=== PATIENT | male | born 1985 | race Caucasian/White ===

== ENCOUNTER 2021-06-04 09:13 | Inpatient (IN) | payer OTHER ==
[~2021-06-04] VITALS: Ht 177.8 cm; Wt 98.0 kg
[2021-06-04 10:42] LABS: BASOPHILS % (AUTO) 0.5 % (0.0-2.0); EOSINOPHILS % (AUTO) 4.5 % (1.0-6.0); HEMOGLOBIN 15.1 g/dL (13.5-17.5); LYMPHOCYTES # (AUTO) 1.1 K/uL (1.0-4.8); MEAN CORPUSCULAR HEMOGLOBIN 26.3 pg (26.0-34.0); MEAN CORPUSCULAR HGB CONC 32.1 G/dL (31.0-37.0); MEAN CORPUSCULAR VOLUME 82 fL (80-100); MONOCYTES # (AUTO) 0.5 K/uL (0.1-1.0); MONOCYTES % (AUTO) 7.7 % (2.0-9.0); NEUTROPHILS # (AUTO) 5.2 K/uL (1.8-7.7); NEUTROPHILS % (AUTO) 72.3 % (40.0-70.0); PLATELET COUNT (AUTO) 268 K/uL (150-450); RED BLOOD CELL COUNT(AUTO) 5.73 MIL/uL (4.50-5.90); RED CELL DISTRIBUTION WIDTH 16.4 % (11.5-14.5)
[2021-06-04 10:50] LABS: ANION GAP 6 mmol/L (8-16); CALCIUM, TOTAL 8.7 mg/dL (8.8-10.5); CARBON DIOXIDE 28 mmol/L (22-29); CHLORIDE 107 mmol/L (98-107); CREATININE 0.93 mg/dL (0.60-1.30); GLOMERULAR FILTR. RATE CALC > 60 mL/min (>60); GLUCOSE,RANDOM 97 mg/dL (70-110); POTASSIUM 3.8 mmol/L (3.5-5.1); SODIUM SERUM 141 mmol/L (136-145); UREA NITROGEN, BLOOD 14 mg/dL (7-18)
[2021-06-04 10:56] LABS: ALANINE AMINOTRANSFERASE 39 U/L (12-78); ALBUMIN 3.4 g/dL (3.4-5.0); ALKALINE PHOSPHATASE 87 U/L (46-116); ASPARTATE AMINOTRANSFERASE 19 U/L (15-37); BILIRUBIN,TOTAL 0.4 mg/dL (0.1-1.0); TOTAL PROTEIN, SERUM 7.4 g/dL (6.4-8.2)
[2021-06-04] MEDS ORDERED: 0.9% SODIUM CHLORIDE 10 ML SYRINGE IVP PRN (11:15)
[2021-06-04] MEDS ORDERED: ALBUTEROL SULFATE/IPRATROPIUM 100-20 MCG/SPRAY 4 GM INHALER IH PRN (11:15)
[2021-06-04] MEDS ORDERED: ACETAMINOPHEN 325 MG TABLET PO PRN (11:15)
[2021-06-04] MEDS ORDERED: ONDANSETRON HCL 4 MG/2 ML VIAL IVP PRN (11:15)
[2021-06-04] MEDS ORDERED: BENZONATATE 100 MG CAPSULE PO PRN (11:15)
[2021-06-04] MEDS ORDERED: BISACODYL 10 MG RECTAL RECTAL SUPPOSITORY PR PRN (11:15)
[2021-06-04] MEDS ORDERED: DOCUSATE SODIUM 100 MG CAPSULE PO PRN (11:15)
[2021-06-04 11:49] LABS: COVID AG,FIA SOURCE NASAL SWAB
[2021-06-04 12:35] VITALS: BP 128/83
[2021-06-04] MEDS: HEPARIN SODIUM,PORCINE 5,000 UNITS/ML VIAL SQ SCH ×2 (16:32→23:19)
[2021-06-04 20:25] VITALS: BP 130/82
[2021-06-05 04:40] VITALS: BP 122/84
[2021-06-05 07:59] VITALS: BP 131/81
[2021-06-05] MEDS: HEPARIN SODIUM,PORCINE 5,000 UNITS/ML VIAL SQ SCH ×2 (08:00→15:59)
[2021-06-05] MEDS: FAMOTIDINE 20 MG TABLET PO SCH (08:13)
[2021-06-05 18:35] VITALS: BP 120/80
[2021-06-05 19:37] VITALS: BP 147/75
[2021-06-06 05:49] VITALS: BP 128/75
[2021-06-06 07:54] VITALS: BP 112/65
[2021-06-06] MEDS: HEPARIN SODIUM,PORCINE 5,000 UNITS/ML VIAL SQ SCH ×3 (08:00→13:33)
[2021-06-06] MEDS: FAMOTIDINE 20 MG TABLET PO SCH (08:20)
[2021-06-06] MEDS ORDERED: FAMO20 PO (12:08)
== END 2021-06-06 14:30 | DRG 203 ==
LOC: EMS 09:21 → 6S 11:30
PROVIDERS: ADMIT Internal Medicine; ATTEND Internal Medicine
DX: J40 Bronchitis, not specified as acute or chronic (principal); Z20.822 Contact with and (suspected) exposure to COVID-19; Z87.891 Personal history of nicotine dependence
CPT/HCPCS: 71045; 80053; 85025; 99285; J1644; 36415-L1; 36415-TC; U0003

== ENCOUNTER 2021-06-08 20:23 | Inpatient (IN) | payer OTHER ==
[~2021-06-08] VITALS: Ht 180.3 cm; Wt 112.3 kg
[~2021-06-08 20:23] MED LIST: FAMO20 PO
[2021-06-08 22:52] LABS: BASOPHILS % (AUTO) 0.5 % (0.0-2.0); EOSINOPHILS % (AUTO) 3.7 % (1.0-6.0); HEMATOCRIT 45.7 % (41-53); HEMOGLOBIN 14.6 g/dL (13.5-17.5); LYMPHOCYTES # (AUTO) 1.9 K/uL (1.0-4.8); LYMPHOCYTES % (AUTO) 27.1 % (22.0-44.0); MEAN CORPUSCULAR HEMOGLOBIN 26.5 pg (26.0-34.0); MEAN CORPUSCULAR VOLUME 83 fL (80-100); MONOCYTES # (AUTO) 0.6 K/uL (0.1-1.0); MONOCYTES % (AUTO) 9.3 % (2.0-9.0); NEUTROPHILS # (AUTO) 4.1 K/uL (1.8-7.7); NEUTROPHILS % (AUTO) 59.4 % (40.0-70.0); PLATELET COUNT (AUTO) 256 K/uL (150-450); RED BLOOD CELL COUNT(AUTO) 5.53 MIL/uL (4.50-5.90); RED CELL DISTRIBUTION WIDTH 16.3 % (11.5-14.5)
[2021-06-08 23:05] LABS: ANION GAP 6 mmol/L (8-16); CALCIUM, TOTAL 8.7 mg/dL (8.8-10.5); CARBON DIOXIDE 29 mmol/L (22-29); CHLORIDE 104 mmol/L (98-107); GLOMERULAR FILTR. RATE CALC > 60 mL/min (>60); GLUCOSE,RANDOM 90 mg/dL (70-110); POTASSIUM 4.4 mmol/L (3.5-5.1); SODIUM SERUM 139 mmol/L (136-145); UREA NITROGEN, BLOOD 14 mg/dL (7-18)
[2021-06-08 23:07] LABS: ALANINE AMINOTRANSFERASE 63 U/L (12-78); ALBUMIN 3.5 g/dL (3.4-5.0); ALKALINE PHOSPHATASE 90 U/L (46-116); ASPARTATE AMINOTRANSFERASE 24 U/L (15-37); BILIRUBIN,TOTAL 0.2 mg/dL (0.1-1.0); TOTAL PROTEIN, SERUM 7.2 g/dL (6.4-8.2)
[2021-06-09] MEDS ORDERED: DOCUSATE SODIUM 100 MG CAPSULE PO PRN (00:15)
[2021-06-09] MEDS ORDERED: CloNIDine HCL 0.1 MG TABLET PO PRN (00:15)
[2021-06-09] MEDS ORDERED: NICOTINE 14 MG/24 HOUR PATCH TD PRN (00:15)
[2021-06-09] MEDS ORDERED: GuaiFENesin/D-METHORPHAN [SUGAR-FREE] 200-20MG/10 ML SYRUP UDCUP PO PRN (00:15)
[2021-06-09] MEDS ORDERED: ONDANSETRON HCL 4 MG TABLET PO PRN (00:15)
[2021-06-09] MEDS ORDERED: MAGNESIUM HYDROXIDE SUSPENSION 30 ML UDCUP PO PRN (00:15)
[2021-06-09] MEDS ORDERED: MAG HYDROX/AL HYDROX/SIMETH ES 30 ML SUSPENSION UDCUP PO PRN (00:15)
[2021-06-09] MEDS ORDERED: PETROLATUM,WHITE 28 GM JELLY TP PRN (00:15)
[2021-06-09] MEDS ORDERED: ALBUTEROL SULFATE HFA 90 MCG/PUFF 8 GM INHALER IH PRN (00:15)
[2021-06-09] MEDS ORDERED: LOPERAMIDE HCL 2 MG CAPSULE PO PRN (00:15)
[2021-06-09] MEDS ORDERED: IBUPROFEN 400 MG TABLET PO PRN (00:15)
[2021-06-09] MEDS ORDERED: ACETAMINOPHEN 325 MG TABLET PO PRN (00:15)
[2021-06-09 00:28] LABS: COVID AG,FIA SOURCE NASOPHARYNGEAL
[2021-06-09 02:40] VITALS: BP 142/75
[2021-06-09 08:11] VITALS: BP 116/75
[2021-06-09 16:07] VITALS: BP 119/71
[2021-06-09] MEDS: SERTRALINE HCL 50 MG TABLET PO SCH (16:23)
[2021-06-09 20:03] VITALS: BP 133/80
[2021-06-10 05:14] VITALS: BP 121/71
[2021-06-10 07:43] VITALS: BP 122/64
[2021-06-10] MEDS: SERTRALINE HCL 50 MG TABLET PO SCH (08:33)
[2021-06-10 20:47] VITALS: BP 116/60
[2021-06-11 04:00] VITALS: BP 108/72
[2021-06-11] MEDS: SERTRALINE HCL 50 MG TABLET PO SCH (08:32)
[2021-06-11 08:41] VITALS: BP 117/60
[2021-06-11 19:23] VITALS: BP 142/66
[2021-06-12 04:10] VITALS: BP 114/71
[2021-06-12 07:23] VITALS: BP 115/70
[2021-06-12] MEDS: SERTRALINE HCL 50 MG TABLET PO SCH ×2 (07:55→20:19)
[2021-06-12 19:33] VITALS: BP 122/65
[2021-06-13 04:50] VITALS: BP 122/74
[2021-06-13 07:25] VITALS: BP 112/68
[2021-06-13] MEDS: SERTRALINE HCL 50 MG TABLET PO SCH ×2 (08:12→20:05)
[2021-06-13 15:54] VITALS: BP 135/75
[2021-06-13 19:55] VITALS: BP 127/71
[2021-06-14 05:00] VITALS: BP 114/67
[2021-06-14 07:54] VITALS: BP 108/59
[2021-06-14] MEDS: SERTRALINE HCL 50 MG TABLET PO SCH ×2 (08:23→19:24)
[2021-06-14 19:27] VITALS: BP 133/71
[2021-06-15 04:52] VITALS: BP 106/59
[2021-06-15 08:05] VITALS: BP 114/59
[2021-06-15] MEDS: SERTRALINE HCL 50 MG TABLET PO SCH (08:15)
[2021-06-15] MEDS ORDERED: SERT-158 PO (10:46)
[2021-06-15] MEDS ORDERED: ACET-2247 PO (10:47)
[2021-06-15] MEDS ORDERED: CLON0.1T2 PO (10:48)
[2021-06-15] MEDS ORDERED: ALBU8HFA IH (10:48)
[2021-06-15] MEDS ORDERED: DOCU-270 PO (10:49)
[2021-06-15] MEDS ORDERED: GUAIF10 PO (10:49)
[2021-06-15] MEDS ORDERED: IBUP-1506 PO (10:50)
[2021-06-15] MEDS ORDERED: LOPE2 PO (10:51)
[2021-06-15] MEDS ORDERED: [UNRECOGNIZED DRUG - CODE] PO (10:52)
[2021-06-15] MEDS ORDERED: NICO-703 TD (10:52)
[2021-06-15] MEDS ORDERED: ONDA-104 PO (10:53)
== END 2021-06-15 16:17 | DRG 885 ==
LOC: EMS 20:28 → UNDOADMIN 06-09 01:32 → 6S 06-09 01:32
PROVIDERS: ADMIT Internal Medicine; ATTEND Internal Medicine
DX: F25.1 Schizoaffective disorder, depressive type (principal); J96.00 Acute respiratory failure, unspecified whether with hypoxia or hypercapnia; K85.90 Acute pancreatitis without necrosis or infection, unspecified; R45.851 Suicidal ideations; K21.9 Gastro-esophageal reflux disease without esophagitis; I10 Essential (primary) hypertension; E66.3 Overweight; E66.9 Obesity, unspecified; F17.200 Nicotine dependence, unspecified, uncomplicated; F32.9 Major depressive disorder, single episode, unspecified; F41.9 Anxiety disorder, unspecified; Z20.822 Contact with and (suspected) exposure to COVID-19; Z68.34 Body mass index [BMI] 34.0-34.9, adult; Z91.5 Personal history of self-harm
CPT/HCPCS: 80053; 85025; 99285; G0480

== ENCOUNTER 2021-08-02 12:41 | Inpatient (IN) | payer OTHER ==
[~2021-08-02] VITALS: Ht 177.8 cm; Wt 104.5 kg
[~2021-08-02 12:41] MED LIST changes: -FAMO20 PO; +SERT-158 PO
[2021-08-02] MEDS ORDERED: LORazepam 2 MG TABLET PO ONE (13:00)
[2021-08-02] MEDS ORDERED: HALOPERIDOL 5 MG TABLET PO ONE (13:00)
[2021-08-02 13:08] LABS: BASOPHILS % (AUTO) 0.4 % (0.0-2.0); EOSINOPHILS % (AUTO) 2.1 % (1.0-6.0); HEMATOCRIT 44.4 % (41-53); HEMOGLOBIN 14.7 g/dL (13.5-17.5); LYMPHOCYTES # (AUTO) 1.8 K/uL (1.0-4.8); LYMPHOCYTES % (AUTO) 22.9 % (22.0-44.0); MEAN CORPUSCULAR VOLUME 82 fL (80-100); MONOCYTES # (AUTO) 0.6 K/uL (0.1-1.0); MONOCYTES % (AUTO) 7.5 % (2.0-9.0); NEUTROPHILS # (AUTO) 5.2 K/uL (1.8-7.7); NEUTROPHILS % (AUTO) 67.1 % (40.0-70.0); PLATELET COUNT (AUTO) 270 K/uL (150-450); RED BLOOD CELL COUNT(AUTO) 5.43 MIL/uL (4.50-5.90); RED CELL DISTRIBUTION WIDTH 15.6 % (11.5-14.5)
[2021-08-02 13:22] LABS: COVID AG,FIA SOURCE NASOPHARYNGEAL
[2021-08-02 13:27] LABS: ANION GAP 11 mmol/L (8-16); CARBON DIOXIDE 25 mmol/L (22-29); CHLORIDE 107 mmol/L (98-107); CREATININE 0.95 mg/dL (0.60-1.30); GLOMERULAR FILTR. RATE CALC > 60 mL/min (>60); GLUCOSE,RANDOM 94 mg/dL (70-110); POTASSIUM 3.8 mmol/L (3.5-5.1); SODIUM SERUM 143 mmol/L (136-145); UREA NITROGEN, BLOOD 8 mg/dL (7-18)
[2021-08-02] MEDS ORDERED: HALOPERIDOL LACTATE 5 MG/ML VIAL IM ONE (13:30)
[2021-08-02] MEDS ORDERED: LORazepam 2 MG/ML VIAL IM ONE (13:30)
[2021-08-02 13:34] LABS: ALANINE AMINOTRANSFERASE 43 U/L (12-78); ALKALINE PHOSPHATASE 93 U/L (46-116); ASPARTATE AMINOTRANSFERASE 19 U/L (15-37); BILIRUBIN,TOTAL 0.2 mg/dL (0.1-1.0); TOTAL PROTEIN, SERUM 7.7 g/dL (6.4-8.2)
[2021-08-02 13:40] LABS: CALCIUM, TOTAL 8.8 mg/dL (8.8-10.5)
[2021-08-02] MEDS ORDERED: ONDANSETRON HCL 4 MG/2 ML VIAL IVP PRN (14:45)
[2021-08-02] MEDS ORDERED: ACETAMINOPHEN 325 MG TABLET PO PRN ×2 (14:45→15:00)
[2021-08-02] MEDS ORDERED: MAGNESIUM HYDROXIDE SUSPENSION 30 ML UDCUP PO PRN (15:00)
[2021-08-02] MEDS ORDERED: ALBUTEROL SULFATE 2.5 MG/0.5 ML NEB SOLUTION NEB PRN (15:00)
[2021-08-02] MEDS ORDERED: BISACODYL 10 MG RECTAL RECTAL SUPPOSITORY PR PRN (15:00)
[2021-08-02] MEDS ORDERED: IPRATROPIUM BROMIDE 0.5 MG/2.5 ML NEB SOLUTION NEB PRN (15:00)
[2021-08-02] MEDS ORDERED: ZOLPIDEM TARTRATE 5 MG TABLET PO PRN (15:00)
[2021-08-02] MEDS: HEPARIN SODIUM,PORCINE 5,000 UNITS/ML VIAL SQ SCH (16:00)
[2021-08-02 16:02] VITALS: BP 117/79
[2021-08-02 20:19] VITALS: BP 125/79
[2021-08-03 04:49] VITALS: BP 132/75
[2021-08-03] MEDS: HEPARIN SODIUM,PORCINE 5,000 UNITS/ML VIAL SQ SCH ×4 (08:00→23:54)
[2021-08-03 08:02] VITALS: BP 152/101
[2021-08-03] MEDS: FLUoxetine HCL 20 MG CAPSULE PO SCH (14:45)
[2021-08-03] MEDS: OLANZapine 5 MG TABLET PO SCH ×2 (14:45→20:21)
[2021-08-03 16:07] VITALS: BP 125/72
[2021-08-03] MEDS ORDERED: AmLODIPine BESYLATE 2.5 MG TABLET PO ONE (16:15)
[2021-08-04 03:30] VITALS: BP 142/98
[2021-08-04] MEDS: HEPARIN SODIUM,PORCINE 5,000 UNITS/ML VIAL SQ SCH ×2 (08:00→16:00)
[2021-08-04 08:03] VITALS: BP 127/80
[2021-08-04] MEDS: OLANZapine 5 MG TABLET PO SCH ×2 (08:47→20:43)
[2021-08-04] MEDS: FLUoxetine HCL 20 MG CAPSULE PO SCH (08:47)
[2021-08-04] MEDS ORDERED: AmLODIPine BESYLATE 2.5 MG TABLET PO SCH (09:00)
[2021-08-04 19:51] VITALS: BP 109/59
[2021-08-05 04:43] VITALS: BP 131/86
[2021-08-05] MEDS: HEPARIN SODIUM,PORCINE 5,000 UNITS/ML VIAL SQ SCH ×3 (08:00→15:06)
[2021-08-05] MEDS: FLUoxetine HCL 20 MG CAPSULE PO SCH (08:09)
[2021-08-05] MEDS: OLANZapine 5 MG TABLET PO SCH ×2 (08:09→20:26)
[2021-08-05 08:14] VITALS: BP 136/79
[2021-08-06] MEDS: FLUoxetine HCL 20 MG CAPSULE PO SCH (07:49)
[2021-08-06] MEDS: HEPARIN SODIUM,PORCINE 5,000 UNITS/ML VIAL SQ SCH ×2 (07:49)
[2021-08-06] MEDS: OLANZapine 5 MG TABLET PO SCH (07:49)
== END 2021-08-06 13:00 | DRG 885 ==
LOC: EMS 12:44 → 6S 14:51
PROVIDERS: ADMIT Hospitalist; ATTEND Hospitalist
DX: F25.1 Schizoaffective disorder, depressive type (principal); I10 Essential (primary) hypertension; Z20.822 Contact with and (suspected) exposure to COVID-19; F17.210 Nicotine dependence, cigarettes, uncomplicated
CPT/HCPCS: 80053; 85025; 99285; G0480; J1630; J1644; J2060

== ENCOUNTER 2021-09-18 01:59 | Emergency (ER) | payer OTHER ==
[~2021-09-18] VITALS: Ht 177.8 cm; Wt 97.7 kg
[2021-09-18] MEDS ORDERED: BACITRACIN 0.9 GM PACKET OINTMENT TP ONE (02:15)
[2021-09-18 02:44] VITALS: BP 159/87
== END 2021-09-18 03:09 | disposition home or self-care (01) ==
LOC: EMS 02:01
DX: S00.81XA Abrasion of other part of head, initial encounter (principal); I10 Essential (primary) hypertension; F20.9 Schizophrenia, unspecified; F17.210 Nicotine dependence, cigarettes, uncomplicated; W22.8XXA Striking against or struck by other objects, initial encounter; Y93.89 Activity, other specified; Y92.89 Other specified places as the place of occurrence of the external cause; Y99.8 Other external cause status
CPT/HCPCS: 99283

== ENCOUNTER 2022-01-01 22:53 | Inpatient (IN) | payer OTHER ==
[~2022-01-01] VITALS: Ht 177.8 cm; Wt 102.3 kg
[2022-01-01 23:45] LABS: COVID AG,FIA SOURCE NASAL SWAB
[2022-01-01 23:47] LABS: BASOPHILS % (AUTO) 0.6 % (0.0-2.0); EOSINOPHILS % (AUTO) 3.4 % (1.0-6.0); HEMATOCRIT 44.1 % (41-53); HEMOGLOBIN 14.6 g/dL (13.5-17.5); LYMPHOCYTES # (AUTO) 1.5 K/uL (1.0-4.8); MEAN CORPUSCULAR HEMOGLOBIN 26.6 pg (26.0-34.0); MEAN CORPUSCULAR HGB CONC 33.2 G/dL (31.0-37.0); MEAN CORPUSCULAR VOLUME 80 fL (80-100); MONOCYTES # (AUTO) 0.9 K/uL (0.1-1.0); MONOCYTES % (AUTO) 13.4 % (2.0-9.0); NEUTROPHILS # (AUTO) 4.2 K/uL (1.8-7.7); NEUTROPHILS % (AUTO) 60.6 % (40.0-70.0); PLATELET COUNT (AUTO) 287 K/uL (150-450); RED CELL DISTRIBUTION WIDTH 14.6 % (11.5-14.5)
[2022-01-01 23:56] LABS: ANION GAP 6 mmol/L (8-16); CARBON DIOXIDE 30 mmol/L (22-29); CHLORIDE 105 mmol/L (98-107); CREATININE 1.11 mg/dL (0.60-1.30); GLOMERULAR FILTR. RATE CALC > 60 mL/min (>60); GLUCOSE,RANDOM 94 mg/dL (70-110); POTASSIUM 3.8 mmol/L (3.5-5.1); SODIUM SERUM 141 mmol/L (136-145); UREA NITROGEN, BLOOD 15 mg/dL (7-18)
[2022-01-02 00:01] LABS: ALANINE AMINOTRANSFERASE 31 U/L (12-78); ALBUMIN 3.9 g/dL (3.4-5.0); ALKALINE PHOSPHATASE 92 U/L (46-116); ASPARTATE AMINOTRANSFERASE 25 U/L (15-37); BILIRUBIN,TOTAL 0.3 mg/dL (0.1-1.0); TOTAL PROTEIN, SERUM 7.8 g/dL (6.4-8.2)
[2022-01-02] MEDS ORDERED: ACETAMINOPHEN 325 MG TABLET PO PRN (02:45)
[2022-01-02] MEDS ORDERED: ONDANSETRON HCL 4 MG/2 ML VIAL IVP PRN (02:45)
[2022-01-02 03:01] LABS: THYROID STIMULATING HORMONE 2.72 uIU/mL (0.36-3.74)
[2022-01-02 03:16] VITALS: BP 143/79
[2022-01-02] MEDS ORDERED: INFLUENZA VIRUS VACCINE QVS 2021-22 (6MO+)/PF 60 MCG/0.5 ML SYRINGE IM. ONE (05:00)
[2022-01-02 07:32] VITALS: BP 135/78
[2022-01-02] MEDS: HEPARIN SODIUM,PORCINE 5,000 UNITS/ML VIAL SQ SCH ×2 (09:15→15:27)
[2022-01-02 12:27] LABS: AMPHET/METH SCREEN,URINE NEGATIVE (NEGATIVE); BARBITURATE SCREEN, URINE NEGATIVE (NEGATIVE); BENZODIAZEPINES SCREEN,URINE NEGATIVE (NEGATIVE); CANNABINOID SCREEN,URINE NEGATIVE (NEGATIVE); COCAINE SCREEN,URINE NEGATIVE (NEGATIVE); METHADONE SCREEN, URINE NEGATIVE (NEGATIVE); OPIATE SCREEN,URINE NEGATIVE (NEGATIVE)
[2022-01-02 12:32] LABS: PHENCYCLIDINE SCREEN,URINE NEGATIVE (NEGATIVE)
[2022-01-02] MEDS: RisperiDONE 1 MG TABLET PO SCH ×2 (12:57→20:20)
[2022-01-02] MEDS: SERTRALINE HCL 50 MG TABLET PO SCH ×2 (12:57→20:20)
[2022-01-02 15:21] VITALS: BP 151/92
[2022-01-02 20:06] VITALS: BP 128/60
[2022-01-03 05:26] VITALS: BP 107/64
[2022-01-03 08:00] VITALS: BP 137/58
[2022-01-03] MEDS: HEPARIN SODIUM,PORCINE 5,000 UNITS/ML VIAL SQ SCH ×3 (08:00→15:01)
[2022-01-03] MEDS: SERTRALINE HCL 50 MG TABLET PO SCH (09:00)
[2022-01-03] MEDS: RisperiDONE 1 MG TABLET PO SCH (09:00)
[2022-01-03] MEDS ORDERED: RISP1TAB48 PO (11:31)
== END 2022-01-03 16:00 | DRG 881 ==
LOC: EMS 22:54 → 6S 01-02 02:00
PROVIDERS: ADMIT Internal Medicine; ATTEND Internal Medicine
DX: F32.A Depression, unspecified (principal); R45.851 Suicidal ideations; I10 Essential (primary) hypertension; F22 Delusional disorders; Z20.822 Contact with and (suspected) exposure to COVID-19; F41.9 Anxiety disorder, unspecified; Z87.891 Personal history of nicotine dependence; Z79.899 Other long term (current) drug therapy; F20.9 Schizophrenia, unspecified
CPT/HCPCS: 80053; 84443; 85025; 99285; G0480; J1644

== ENCOUNTER 2022-01-04 15:02 | Inpatient (IN) | payer OTHER ==
[~2022-01-04] VITALS: Ht 177.8 cm; Wt 102.3 kg
[~2022-01-04 15:02] MED LIST changes: +RISP1TAB48 PO
[2022-01-04 15:27] LABS: BASOPHILS % (AUTO) 0.5 % (0.0-2.0); EOSINOPHILS % (AUTO) 4.1 % (1.0-6.0); HEMATOCRIT 43.9 % (41-53); HEMOGLOBIN 14.5 g/dL (13.5-17.5); LYMPHOCYTES # (AUTO) 1.2 K/uL (1.0-4.8); MEAN CORPUSCULAR HEMOGLOBIN 26.7 pg (26.0-34.0); MEAN CORPUSCULAR VOLUME 81 fL (80-100); MONOCYTES # (AUTO) 0.6 K/uL (0.1-1.0); MONOCYTES % (AUTO) 9.5 % (2.0-9.0); NEUTROPHILS # (AUTO) 3.8 K/uL (1.8-7.7); NEUTROPHILS % (AUTO) 65.9 % (40.0-70.0); PLATELET COUNT (AUTO) 265 K/uL (150-450); RED BLOOD CELL COUNT(AUTO) 5.43 MIL/uL (4.50-5.90); RED CELL DISTRIBUTION WIDTH 14.5 % (11.5-14.5)
[2022-01-04] MEDS ORDERED: PERTUSS(ACELL),DIPH,TET VAC/PF 0.5 ML SYRINGE IM. ONE (15:30)
[2022-01-04 15:39] LABS: COVID AG,FIA SOURCE NASAL SWAB
[2022-01-04 15:42] LABS: ANION GAP 5 mmol/L (8-16); CALCIUM, TOTAL 8.8 mg/dL (8.8-10.5); CARBON DIOXIDE 29 mmol/L (22-29); CHLORIDE 105 mmol/L (98-107); CREATININE 1.04 mg/dL (0.60-1.30); GLOMERULAR FILTR. RATE CALC > 60 mL/min (>60); GLUCOSE,RANDOM 112 mg/dL (70-110); POTASSIUM 4.4 mmol/L (3.5-5.1); SODIUM SERUM 139 mmol/L (136-145); UREA NITROGEN, BLOOD 12 mg/dL (7-18)
[2022-01-04] MEDS ORDERED: MAGNESIUM HYDROXIDE SUSPENSION 30 ML UDCUP PO PRN (15:45)
[2022-01-04] MEDS ORDERED: ACETAMINOPHEN 325 MG TABLET PO PRN (15:45)
[2022-01-04 15:48] LABS: ALANINE AMINOTRANSFERASE 35 U/L (12-78); ALBUMIN 3.5 g/dL (3.4-5.0); ALKALINE PHOSPHATASE 88 U/L (46-116); ASPARTATE AMINOTRANSFERASE 23 U/L (15-37); BILIRUBIN,TOTAL 0.2 mg/dL (0.1-1.0); TOTAL PROTEIN, SERUM 7.3 g/dL (6.4-8.2)
[2022-01-04 17:26] VITALS: BP 128/63
[2022-01-04 19:52] VITALS: BP 135/70
[2022-01-04] MEDS: ZOLPIDEM TARTRATE 5 MG TABLET PO PRN (20:05)
[2022-01-04 20:46] LABS: AMPHET/METH SCREEN,URINE NEGATIVE (NEGATIVE); BARBITURATE SCREEN, URINE NEGATIVE (NEGATIVE); BENZODIAZEPINES SCREEN,URINE NEGATIVE (NEGATIVE); CANNABINOID SCREEN,URINE NEGATIVE (NEGATIVE); COCAINE SCREEN,URINE NEGATIVE (NEGATIVE); METHADONE SCREEN, URINE NEGATIVE (NEGATIVE); OPIATE SCREEN,URINE NEGATIVE (NEGATIVE); PHENCYCLIDINE SCREEN,URINE NEGATIVE (NEGATIVE)
[2022-01-05 04:31] VITALS: BP 124/73
[2022-01-05] MEDS: FAMOTIDINE 20 MG TABLET PO SCH (08:06)
[2022-01-05 08:38] VITALS: BP 138/81
[2022-01-05] MEDS: SERTRALINE HCL 50 MG TABLET PO SCH (10:45)
[2022-01-05] MEDS: RisperiDONE 1 MG TABLET PO SCH ×2 (10:45→20:55)
[2022-01-05 16:14] VITALS: BP 132/85
[2022-01-05 19:30] VITALS: BP 145/80
[2022-01-06 04:18] VITALS: BP 107/61
[2022-01-06] MEDS: SERTRALINE HCL 50 MG TABLET PO SCH (08:15)
[2022-01-06] MEDS: RisperiDONE 1 MG TABLET PO SCH ×2 (08:15→20:02)
[2022-01-06 08:18] VITALS: BP 131/77
[2022-01-06] MEDS: FAMOTIDINE 20 MG TABLET PO SCH (08:18)
[2022-01-06 16:08] VITALS: BP 101/58
[2022-01-06 19:44] VITALS: BP 131/78
[2022-01-07 04:16] VITALS: BP 126/77
[2022-01-07 07:56] VITALS: BP 113/57
[2022-01-07] MEDS: SERTRALINE HCL 50 MG TABLET PO SCH (07:57)
[2022-01-07] MEDS: RisperiDONE 1 MG TABLET PO SCH ×2 (07:57→19:43)
[2022-01-07] MEDS: FAMOTIDINE 20 MG TABLET PO SCH (07:57)
[2022-01-07 15:49] VITALS: BP 124/71
[2022-01-07 20:00] VITALS: BP 124/76
[2022-01-07] MEDS: ZOLPIDEM TARTRATE 5 MG TABLET PO PRN (23:42)
[2022-01-08 04:40] VITALS: BP 118/70
[2022-01-08 07:34] VITALS: BP_SYST 102; BP_SYST 113; BP_DIAS 59; BP_DIAS 64
[2022-01-08] MEDS: RisperiDONE 1 MG TABLET PO SCH (08:07)
[2022-01-08] MEDS: FAMOTIDINE 20 MG TABLET PO SCH (08:07)
[2022-01-08] MEDS: SERTRALINE HCL 50 MG TABLET PO SCH (08:07)
== END 2022-01-08 15:05 | DRG 885 ==
LOC: EMS 15:07 → 6S 15:39
PROVIDERS: ADMIT Internal Medicine; ATTEND Internal Medicine
PROC: 3E0234Z Introduction of Serum, Toxoid and Vaccine into Muscle, Percutaneous Approach (ICD-10-PCS; principal; 2022-01-04)
DX: F25.1 Schizoaffective disorder, depressive type (principal); R45.851 Suicidal ideations; I10 Essential (primary) hypertension; S00.01XA Abrasion of scalp, initial encounter; Z20.822 Contact with and (suspected) exposure to COVID-19; Z87.891 Personal history of nicotine dependence; Z23 Encounter for immunization; X83.8XXA Intentional self-harm by other specified means, initial encounter; Y93.89 Activity, other specified; Y92.89 Other specified places as the place of occurrence of the external cause; Y99.8 Other external cause status
CPT/HCPCS: 80053; 85025; 90715; 99285; G0480

== ENCOUNTER 2022-04-16 22:05 | Inpatient (IN) | payer OTHER ==
[~2022-04-16] VITALS: Ht 179.1 cm; Wt 100.9 kg
[2022-04-16 22:38] LABS: BASOPHILS % (AUTO) 0.7 % (0.0-2.0); EOSINOPHILS % (AUTO) 3.5 % (1.0-6.0); HEMATOCRIT 42.8 % (41-53); HEMOGLOBIN 14.2 g/dL (13.5-17.5); LYMPHOCYTES # (AUTO) 1.5 K/uL (1.0-4.8); LYMPHOCYTES % (AUTO) 19.7 % (22.0-44.0); MEAN CORPUSCULAR HEMOGLOBIN 27.2 pg (26.0-34.0); MEAN CORPUSCULAR HGB CONC 33.1 G/dL (31.0-37.0); MEAN CORPUSCULAR VOLUME 82 fL (80-100); MONOCYTES # (AUTO) 0.7 K/uL (0.1-1.0); MONOCYTES % (AUTO) 9.3 % (2.0-9.0); NEUTROPHILS # (AUTO) 5.1 K/uL (1.8-7.7); NEUTROPHILS % (AUTO) 66.8 % (40.0-70.0); PLATELET COUNT (AUTO) 254 K/uL (150-450); RED BLOOD CELL COUNT(AUTO) 5.21 MIL/uL (4.50-5.90); RED CELL DISTRIBUTION WIDTH 14.8 % (11.5-14.5)
[2022-04-16 22:47] LABS: COVID AG,FIA SOURCE NASAL SWAB
[2022-04-16 22:48] LABS: ANION GAP 8 mmol/L (8-16); CALCIUM, TOTAL 8.7 mg/dL (8.8-10.5); CARBON DIOXIDE 27 mmol/L (22-29); CHLORIDE 103 mmol/L (98-107); CREATININE 0.94 mg/dL (0.60-1.30); GLUCOSE,RANDOM 98 mg/dL (70-110); POTASSIUM 3.8 mmol/L (3.5-5.1); SODIUM SERUM 138 mmol/L (136-145); UREA NITROGEN, BLOOD 19 mg/dL (7-18)
[2022-04-16 22:51] LABS: GLOMERULAR FILTR. RATE CALC > 60 mL/min (>60)
[2022-04-16 22:53] LABS: ALANINE AMINOTRANSFERASE 33 U/L (12-78); ALBUMIN 3.3 g/dL (3.4-5.0); ALKALINE PHOSPHATASE 97 U/L (46-116); ASPARTATE AMINOTRANSFERASE 17 U/L (15-37); BILIRUBIN,TOTAL 0.2 mg/dL (0.1-1.0); TOTAL PROTEIN, SERUM 6.9 g/dL (6.4-8.2)
[2022-04-16 23:52] LABS: APPEARANCE,URINE CLEAR (CLEAR); BILIRUBIN,URINE NEGATIVE (NEGATIVE); GLUCOSE, URINE (UA) NEGATIVE (NEGATIVE); KETONES,URINE NEGATIVE (NEGATIVE); LEUKOCYTE ESTERASE ,URINE NEGATIVE (NEGATIVE); NITRATE,URINE NEGATIVE (NEGATIVE); OCCULT BLOOD,URINE NEGATIVE (NEGATIVE); PH,URINE 5.5 (5.0-8.0); PROTEIN,URINE NEGATIVE (NEGATIVE); UROBILINOGEN,URINE <=1.0 mg/dL (<=1.0)
[2022-04-16 23:57] LABS: AMPHET/METH SCREEN,URINE NEGATIVE (NEGATIVE); BARBITURATE SCREEN, URINE NEGATIVE (NEGATIVE); BENZODIAZEPINES SCREEN,URINE NEGATIVE (NEGATIVE); CANNABINOID SCREEN,URINE NEGATIVE (NEGATIVE); COCAINE SCREEN,URINE NEGATIVE (NEGATIVE); METHADONE SCREEN, URINE NEGATIVE (NEGATIVE); OPIATE SCREEN,URINE NEGATIVE (NEGATIVE)
[2022-04-16 23:58] LABS: PHENCYCLIDINE SCREEN,URINE NEGATIVE (NEGATIVE)
[2022-04-17 01:15] VITALS: BP 133/78
[2022-04-17] MEDS ORDERED: ZOLPIDEM TARTRATE 5 MG TABLET PO PRN (07:45)
[2022-04-17] MEDS ORDERED: ACETAMINOPHEN 325 MG TABLET PO PRN (07:45)
[2022-04-17] MEDS ORDERED: MAGNESIUM HYDROXIDE SUSPENSION 30 ML UDCUP PO PRN (07:45)
[2022-04-17 08:08] VITALS: BP 144/66
[2022-04-17] MEDS: FAMOTIDINE 20 MG TABLET PO SCH (09:00)
[2022-04-17 16:10] VITALS: BP 140/88
[2022-04-17 20:00] VITALS: BP 122/69
[2022-04-18 04:00] VITALS: BP 127/84
[2022-04-18 07:53] VITALS: BP 132/74
[2022-04-18] MEDS: FAMOTIDINE 20 MG TABLET PO SCH (09:04)
[2022-04-18] MEDS: AmLODIPine BESYLATE 2.5 MG TABLET PO SCH (09:04)
[2022-04-18 15:22] VITALS: BP 133/78
[2022-04-18 19:46] VITALS: BP 158/86
[2022-04-19 04:58] VITALS: BP 128/80
[2022-04-19 07:19] VITALS: BP 155/93
[2022-04-19] MEDS: AmLODIPine BESYLATE 2.5 MG TABLET PO SCH (08:45)
[2022-04-19] MEDS: FAMOTIDINE 20 MG TABLET PO SCH (08:45)
[2022-04-19 19:45] VITALS: BP 139/94
[2022-04-20 08:03] VITALS: BP 134/88
[2022-04-20] MEDS: AmLODIPine BESYLATE 2.5 MG TABLET PO SCH (08:24)
[2022-04-20] MEDS: FAMOTIDINE 20 MG TABLET PO SCH (08:24)
[2022-04-20] MEDS: QUEtiapine FUMARATE 25 MG TABLET PO PRN (11:01)
[2022-04-20 20:14] VITALS: BP 117/76
[2022-04-21 04:27] VITALS: BP 138/77
[2022-04-21 07:20] VITALS: BP 128/78
[2022-04-21] MEDS: FAMOTIDINE 20 MG TABLET PO SCH (08:48)
[2022-04-21] MEDS: AmLODIPine BESYLATE 2.5 MG TABLET PO SCH (08:48)
[2022-04-21] MEDS: QUEtiapine FUMARATE 25 MG TABLET PO PRN (08:49)
[2022-04-22 05:40] VITALS: BP 126/84
[2022-04-22 07:40] VITALS: BP 139/87
[2022-04-22] MEDS: QUEtiapine FUMARATE 25 MG TABLET PO PRN (08:19)
[2022-04-22] MEDS: FAMOTIDINE 20 MG TABLET PO SCH (08:20)
[2022-04-22] MEDS: AmLODIPine BESYLATE 2.5 MG TABLET PO SCH (08:21)
[2022-04-22] MEDS ORDERED: MULTIVITAMINS WITH MINERALS, THERAPEUTIC TABLET PO SCH (09:00)
[2022-04-22] MEDS ORDERED: AMLO2.5T29 PO (13:50)
[2022-04-22] MEDS ORDERED: FAMO20 PO (13:51)
[2022-04-22] MEDS ORDERED: MULT-248 PO (13:52)
[2022-04-22] MEDS ORDERED: QUET25TA PO (13:53)
[2022-04-22 15:38] VITALS: BP 128/82
== END 2022-04-22 18:30 | DRG 914 ==
LOC: EMS 22:05 → 6S 04-17 01:23
PROVIDERS: ADMIT Internal Medicine; ATTEND Internal Medicine
DX: S09.90XA Unspecified injury of head, initial encounter (principal); F33.3 Major depressive disorder, recurrent, severe with psychotic symptoms; R45.851 Suicidal ideations; Z20.822 Contact with and (suspected) exposure to COVID-19; I10 Essential (primary) hypertension; F41.9 Anxiety disorder, unspecified; W22.01XA Walked into wall, initial encounter; Y93.89 Activity, other specified; Z79.899 Other long term (current) drug therapy; Z87.891 Personal history of nicotine dependence; Y92.89 Other specified places as the place of occurrence of the external cause; Y99.8 Other external cause status
CPT/HCPCS: 70450; 80053; 81003; 85025; 99285; G0480

== ENCOUNTER 2024-01-18 13:23 | Inpatient (IN) | payer OTHER ==
[~2024-01-18] VITALS: Ht 177.8 cm; Wt 91.4 kg
[~2024-01-18 13:23] MED LIST changes: +AMLO2.5T29 PO; +BENZ2TAB71 PO; -RISP1TAB48 PO; -SERT-158 PO
[2024-01-18 14:21] LABS: BASOPHILS % (AUTO) 0.5 % (0.0-2.0); EOSINOPHILS % (AUTO) 3.3 % (1.0-6.0); HEMATOCRIT 47.2 % (41-53); HEMOGLOBIN 15.5 g/dL (13.5-17.5); LYMPHOCYTES # (AUTO) 1.4 K/uL (1.0-4.8); LYMPHOCYTES % (AUTO) 17.4 % (22.0-44.0); MEAN CORPUSCULAR HEMOGLOBIN 27.9 pg (26.0-34.0); MEAN CORPUSCULAR HGB CONC 32.8 G/dL (31.0-37.0); MEAN CORPUSCULAR VOLUME 85 fL (80-100); MONOCYTES # (AUTO) 0.9 K/uL (0.1-1.0); MONOCYTES % (AUTO) 11.5 % (2.0-9.0); NEUTROPHILS # (AUTO) 5.2 K/uL (1.8-7.7); NEUTROPHILS % (AUTO) 67.3 % (40.0-70.0); PLATELET COUNT (AUTO) 280 K/uL (150-450); RED BLOOD CELL COUNT(AUTO) 5.54 MIL/uL (4.50-5.90); RED CELL DISTRIBUTION WIDTH 15.8 % (11.5-14.5); WHITE BLOOD COUNT (AUTO) 7.8 K/uL (4.5-11.0)
[2024-01-18 14:30] LABS: ANION GAP 7 mmol/L (8-16); CALCIUM, TOTAL 8.6 mg/dL (8.8-10.5); CARBON DIOXIDE 30 mmol/L (22-29); CHLORIDE 103 mmol/L (98-107); GLOMERULAR FILTR. RATE CALC > 60 mL/min (>60); GLUCOSE,RANDOM 86 mg/dL (70-110); POTASSIUM 3.4 mmol/L (3.5-5.1); SODIUM SERUM 140 mmol/L (136-145); UREA NITROGEN, BLOOD 14 mg/dL (7-18)
[2024-01-18 14:36] LABS: ALANINE AMINOTRANSFERASE 38 U/L (12-78); ALBUMIN 3.6 g/dL (3.4-5.0); ALKALINE PHOSPHATASE 98 U/L (46-116); ASPARTATE AMINOTRANSFERASE 20 U/L (15-37); BILIRUBIN,TOTAL 0.5 mg/dL (0.1-1.0); TOTAL PROTEIN, SERUM 7.7 g/dL (6.4-8.2)
[2024-01-18 14:36] LABS: COVID AG,FIA SOURCE NASAL SWAB
[2024-01-18 14:42] LABS: ALCOHOL, BLOOD (SERUM) < 3 mg/dL (0-10)
[2024-01-18 15:01] LABS: SARS-COV2 (COVID) ANTIGEN,FIA Negative (Negative)
[2024-01-18] MEDS ORDERED: ACETAMINOPHEN 325 MG TABLET PO PRN ×2 (17:15→19:00)
[2024-01-18] MEDS ORDERED: ONDANSETRON HCL 4 MG/2 ML VIAL IVP PRN ×2 (17:15→19:00)
[2024-01-18] MEDS ORDERED: 0.9% SODIUM CHLORIDE 10 ML SYRINGE IVP PRN (17:15)
[2024-01-18] MEDS ORDERED: ALBUTEROL SULFATE 2.5 MG/0.5 ML NEB SOLUTION NEB PRN (19:00)
[2024-01-18] MEDS ORDERED: MAGNESIUM HYDROXIDE SUSPENSION 30 ML UDCUP PO PRN (19:00)
[2024-01-18] MEDS ORDERED: BISACODYL 10 MG RECTAL RECTAL SUPPOSITORY PR PRN (19:00)
[2024-01-18] MEDS ORDERED: IPRATROPIUM BROMIDE 0.5 MG/2.5 ML NEB SOLUTION NEB PRN (19:00)
[2024-01-18 20:11] VITALS: BP 131/86; PULSE 60; RESP 20; TEMP 97.8
[2024-01-19] MEDS: HEPARIN SODIUM,PORCINE 5,000 UNITS/ML VIAL SQ SCH (00:45)
[2024-01-19 06:00] VITALS: BP 134/76; PULSE 53; RESP 20; TEMP 98.1
[2024-01-19 07:02] LABS: BASOPHILS % (AUTO) 0.5 % (0.0-2.0); EOSINOPHILS % (AUTO) 6.2 % (1.0-6.0); HEMATOCRIT 42.4 % (41-53); HEMOGLOBIN 14.2 g/dL (13.5-17.5); LYMPHOCYTES # (AUTO) 1.6 K/uL (1.0-4.8); LYMPHOCYTES % (AUTO) 21.1 % (22.0-44.0); MEAN CORPUSCULAR HEMOGLOBIN 28.2 pg (26.0-34.0); MEAN CORPUSCULAR HGB CONC 33.5 G/dL (31.0-37.0); MEAN CORPUSCULAR VOLUME 84 fL (80-100); MONOCYTES # (AUTO) 0.7 K/uL (0.1-1.0); MONOCYTES % (AUTO) 9.6 % (2.0-9.0); NEUTROPHILS # (AUTO) 4.7 K/uL (1.8-7.7); NEUTROPHILS % (AUTO) 62.6 % (40.0-70.0); PLATELET COUNT (AUTO) 238 K/uL (150-450); RED BLOOD CELL COUNT(AUTO) 5.03 MIL/uL (4.50-5.90); RED CELL DISTRIBUTION WIDTH 15.5 % (11.5-14.5); WHITE BLOOD COUNT (AUTO) 7.5 K/uL (4.5-11.0)
[2024-01-19 07:21] LABS: ALANINE AMINOTRANSFERASE 28 U/L (12-78); ALKALINE PHOSPHATASE 90 U/L (46-116); ANION GAP 10 mmol/L (8-16); ASPARTATE AMINOTRANSFERASE 12 U/L (15-37); BILIRUBIN,TOTAL 0.4 mg/dL (0.1-1.0); CALCIUM, TOTAL 8.1 mg/dL (8.8-10.5); CARBON DIOXIDE 25 mmol/L (22-29); CHLORIDE 104 mmol/L (98-107); CREATININE 0.81 mg/dL (0.60-1.30); GLOMERULAR FILTR. RATE CALC > 60 mL/min (>60); GLUCOSE,RANDOM 86 mg/dL (70-110); POTASSIUM 3.5 mmol/L (3.5-5.1); SODIUM SERUM 139 mmol/L (136-145); TOTAL PROTEIN, SERUM 6.3 g/dL (6.4-8.2); UREA NITROGEN, BLOOD 13 mg/dL (7-18)
[2024-01-19 08:16] VITALS: BP 145/97; PULSE 48; RESP 20; TEMP 98.5
[2024-01-19] MEDS: PANTOPRAZOLE SODIUM 40 MG DR TABLET PO SCH (09:06)
[2024-01-19] MEDS: RisperiDONE 2 MG TABLET PO SCH (12:13)
[2024-01-19 16:10] VITALS: BP 140/92; PULSE 60; RESP 20; TEMP 98.4
[2024-01-19 20:04] VITALS: BP 144/82; PULSE 61; RESP 20; TEMP 98.2
[2024-01-19] MEDS: ZOLPIDEM TARTRATE 5 MG TABLET PO PRN (20:12)
[2024-01-20 00:37] LABS: PH,URINE DRUG SCREEN 6.5 (5.0-8.0)
[2024-01-20 00:42] LABS: ALCOHOL, URINE DRUG SCREEN NEGATIVE (NEGATIVE); AMPHET/METH SCREEN,URINE NEGATIVE (NEGATIVE); BARBITURATE SCREEN, URINE NEGATIVE (NEGATIVE); BENZODIAZEPINES SCREEN,URINE NEGATIVE (NEGATIVE); CANNABINOID SCREEN,URINE NEGATIVE (NEGATIVE); COCAINE SCREEN,URINE NEGATIVE (NEGATIVE); METHADONE SCREEN, URINE NEGATIVE (NEGATIVE); OPIATE SCREEN,URINE NEGATIVE (NEGATIVE); PHENCYCLIDINE SCREEN,URINE NEGATIVE (NEGATIVE)
[2024-01-20 04:30] VITALS: BP 140/75; PULSE 48; RESP 19; TEMP 97.7
[2024-01-20 16:25] VITALS: BP 183/96; PULSE 68; RESP 20; TEMP 97.9
[2024-01-20] MEDS: AmLODIPine BESYLATE 10 MG TABLET PO SCH (17:36)
[2024-01-20 19:51] VITALS: BP 137/85; PULSE 57; RESP 20; TEMP 98.5
[2024-01-21 08:34] VITALS: BP 133/77; PULSE 54; RESP 20; TEMP 97.8
[2024-01-21 19:42] VITALS: BP 143/83; PULSE 52; RESP 18; TEMP 97.8
[2024-01-21] MEDS: RisperiDONE 3 MG TABLET PO SCH (20:02)
[2024-01-21] MEDS: SERTRALINE HCL 50 MG TABLET PO SCH (20:02)
[2024-01-22 04:05] VITALS: BP 139/76; PULSE 49; RESP 18; TEMP 97.5
[2024-01-22 08:31] VITALS: BP 142/92; PULSE 60; RESP 18; TEMP 98.2
[2024-01-22] MEDS ORDERED: AMLO10TA55 PO (11:51)
[2024-01-22] MEDS ORDERED: RISP3TAB35 PO (11:53)
[2024-01-22] MEDS ORDERED: SERT20OR6 PO (11:53)
== END 2024-01-22 14:44 | DRG 885 ==
LOC: EMS 13:23 → 6S 17:17
PROVIDERS: ADMIT Hospitalist; ATTEND Hospitalist
DX: F20.0 Paranoid schizophrenia (principal); R45.851 Suicidal ideations; I10 Essential (primary) hypertension; F32.A Depression, unspecified; Z20.822 Contact with and (suspected) exposure to COVID-19; F14.90 Cocaine use, unspecified, uncomplicated; F17.210 Nicotine dependence, cigarettes, uncomplicated; Z79.899 Other long term (current) drug therapy
CPT/HCPCS: 80053; 80307; 85025; 99285; G0480; J1644

== ENCOUNTER 2024-02-06 11:31 | Inpatient (IN) | payer OTHER ==
[~2024-02-06] VITALS: Ht 177.8 cm; Wt 92.0 kg
[~2024-02-06 11:31] MED LIST changes: +AMLO10TA55 PO; -AMLO2.5T29 PO; -BENZ2TAB71 PO; +RISP3TAB35 PO; +SERT20OR6 PO
[2024-02-06 12:15] LABS: BASOPHILS % (AUTO) 0.4 % (0.0-2.0); EOSINOPHILS % (AUTO) 2.6 % (1.0-6.0); HEMATOCRIT 43.2 % (41-53); HEMOGLOBIN 14.2 g/dL (13.5-17.5); LYMPHOCYTES # (AUTO) 0.9 K/uL (1.0-4.8); LYMPHOCYTES % (AUTO) 12.5 % (22.0-44.0); MEAN CORPUSCULAR HEMOGLOBIN 27.9 pg (26.0-34.0); MEAN CORPUSCULAR VOLUME 85 fL (80-100); MONOCYTES # (AUTO) 0.4 K/uL (0.1-1.0); MONOCYTES % (AUTO) 6.2 % (2.0-9.0); NEUTROPHILS # (AUTO) 5.5 K/uL (1.8-7.7); NEUTROPHILS % (AUTO) 78.3 % (40.0-70.0); PLATELET COUNT (AUTO) 297 K/uL (150-450); RED BLOOD CELL COUNT(AUTO) 5.11 MIL/uL (4.50-5.90); RED CELL DISTRIBUTION WIDTH 15.2 % (11.5-14.5); WHITE BLOOD COUNT (AUTO) 7.1 K/uL (4.5-11.0)
[2024-02-06 12:29] LABS: ANION GAP 13 mmol/L (8-16); CALCIUM, TOTAL 8.5 mg/dL (8.8-10.5); CARBON DIOXIDE 24 mmol/L (22-29); CHLORIDE 105 mmol/L (98-107); CREATININE 0.95 mg/dL (0.60-1.30); GLOMERULAR FILTR. RATE CALC > 60 mL/min (>60); GLUCOSE,RANDOM 165 mg/dL (70-110); POTASSIUM 3.3 mmol/L (3.5-5.1); SODIUM SERUM 142 mmol/L (136-145); UREA NITROGEN, BLOOD 8 mg/dL (7-18)
[2024-02-06] MEDS: SODIUM CHLORIDE 0.9% 250 ML IRRIG SOLUTION BOTTLE IRRIG ONE (12:31)
[2024-02-06] MEDS: PERTUSS(ACELL),DIPH,TET/PF 0.5 ML SYRINGE [ADULT] IM. ONE (12:32)
[2024-02-06 12:35] LABS: ALCOHOL, BLOOD (SERUM) < 3 mg/dL (0-10)
[2024-02-06 12:36] LABS: ALANINE AMINOTRANSFERASE 34 U/L (12-78); ALBUMIN 3.7 g/dL (3.4-5.0); ALKALINE PHOSPHATASE 103 U/L (46-116); ASPARTATE AMINOTRANSFERASE 21 U/L (15-37); BILIRUBIN,TOTAL 0.4 mg/dL (0.1-1.0); TOTAL PROTEIN, SERUM 7.4 g/dL (6.4-8.2)
[2024-02-06 13:31] LABS: COVID AG,FIA SOURCE NPH
[2024-02-06] MEDS: POTASSIUM CHLORIDE 20 MEQ ER TABLET PO ONE (13:59)
[2024-02-06] MEDS: DiphenhydrAMINE HCL 50 MG/ML VIAL IM ONE (14:05)
[2024-02-06] MEDS: HALOPERIDOL LACTATE 5 MG/ML VIAL IM ONE (14:05)
[2024-02-06] MEDS: LORazepam 2 MG/ML VIAL IM ONE (14:05)
[2024-02-06 14:09] LABS: SARS-COV2 (COVID) ANTIGEN,FIA Negative (Negative)
[2024-02-06] MEDS ORDERED: ONDANSETRON HCL 4 MG/2 ML VIAL IVP PRN (14:15)
[2024-02-06] MEDS ORDERED: MAGNESIUM HYDROXIDE SUSPENSION 30 ML UDCUP PO PRN (14:15)
[2024-02-06] MEDS ORDERED: BISACODYL 10 MG RECTAL RECTAL SUPPOSITORY PR PRN (14:15)
[2024-02-06 18:52] LABS: AMPHET/METH SCREEN,URINE NEGATIVE (NEGATIVE); BARBITURATE SCREEN, URINE NEGATIVE (NEGATIVE); BENZODIAZEPINES SCREEN,URINE NEGATIVE (NEGATIVE); CANNABINOID SCREEN,URINE NEGATIVE (NEGATIVE); COCAINE SCREEN,URINE NEGATIVE (NEGATIVE); METHADONE SCREEN, URINE NEGATIVE (NEGATIVE); OPIATE SCREEN,URINE NEGATIVE (NEGATIVE); PHENCYCLIDINE SCREEN,URINE NEGATIVE (NEGATIVE)
[2024-02-06 18:53] LABS: ALCOHOL, URINE DRUG SCREEN NEGATIVE (NEGATIVE)
[2024-02-06 20:08] VITALS: BP 142/89; PULSE 64; RESP 19; TEMP 99
[2024-02-06] MEDS: DOCUSATE SODIUM 100 MG CAPSULE PO SCH (21:07)
[2024-02-07] MEDS: PANTOPRAZOLE SODIUM 40 MG DR TABLET PO SCH (08:02)
[2024-02-07 08:12] LABS: ANION GAP 9 mmol/L (8-16); CALCIUM, TOTAL 8.9 mg/dL (8.8-10.5); CARBON DIOXIDE 27 mmol/L (22-29); CHLORIDE 104 mmol/L (98-107); GLOMERULAR FILTR. RATE CALC > 60 mL/min (>60); GLUCOSE,RANDOM 91 mg/dL (70-110); POTASSIUM 3.9 mmol/L (3.5-5.1); SODIUM SERUM 140 mmol/L (136-145); UREA NITROGEN, BLOOD 8 mg/dL (7-18)
[2024-02-07 08:35] VITALS: BP 147/87; PULSE 73; RESP 19; TEMP 98.5
[2024-02-07] MEDS: SERTRALINE HCL 50 MG TABLET PO SCH (16:00)
[2024-02-07 19:12] VITALS: BP 171/97; PULSE 65; RESP 19; TEMP 98.9
[2024-02-07] MEDS: ACETAMINOPHEN 325 MG TABLET PO PRN (20:44)
[2024-02-07] MEDS: ZOLPIDEM TARTRATE 5 MG TABLET PO PRN (20:45)
[2024-02-07] MEDS: RisperiDONE 3 MG TABLET PO SCH (20:45)
[2024-02-08 05:50] VITALS: BP 126/88; PULSE 60; RESP 18; TEMP 97.8
[2024-02-08 07:30] VITALS: BP 130/92; PULSE 50; RESP 18; TEMP 98.2
[2024-02-08] MEDS: AmLODIPine BESYLATE 10 MG TABLET PO SCH (09:00)
[2024-02-09 08:20] VITALS: BP 139/83; PULSE 57; RESP 18; TEMP 97.9
[2024-02-09 20:37] VITALS: BP 153/99; PULSE 64; RESP 20; TEMP 98.3
[2024-02-10] MEDS: SERTRALINE HCL 50 MG TABLET PO SCH (20:13)
[2024-02-10 20:19] VITALS: BP 155/95; PULSE 80; RESP 20; TEMP 98.5
[2024-02-11 08:48] VITALS: BP 129/78; PULSE 57; RESP 19; TEMP 98.9
== END 2024-02-11 17:11 | DRG 605 ==
LOC: EMS 11:31 → 6S 17:42
PROVIDERS: ADMIT Internal Medicine; ATTEND Internal Medicine
DX: S01.81XA Laceration without foreign body of other part of head, initial encounter (principal); R45.851 Suicidal ideations; E87.6 Hypokalemia; I10 Essential (primary) hypertension; F15.90 Other stimulant use, unspecified, uncomplicated; Z20.822 Contact with and (suspected) exposure to COVID-19; F25.9 Schizoaffective disorder, unspecified; W22.09XA Striking against other stationary object, initial encounter; Z87.891 Personal history of nicotine dependence; Y93.89 Activity, other specified; Y92.89 Other specified places as the place of occurrence of the external cause; Y99.8 Other external cause status
CPT/HCPCS: 80048; 80053; 80307; 85025; 90715; 99285; G0480